=== PATIENT | male | born 1965 | race Caucasian/White ===

== ENCOUNTER → 2021-01-27 | Outpatient (CLI) | payer BC ==
[~2021-01-27] VITALS: Ht 187 cm; Wt 101.0 kg
[~2021-01-27] MED LIST: ACETAMINOPHEN 500 MG TAB (TYLENOL) PO PRN; BAMLANIVIMAB 700 MG/ETESEVIMAB 1,400 MG IN NS IV ONE; EPINEPHrine INJECTION 1 MG/ML AMP IM PRN; ONDANSETRON 4 MG/2 ML (SDV) Z0FRAN IV PRN; diphenhydrAMINE 50 MG/ML INJ (BENADRYL) IV PRN
[2021-01-27 10:13] VITALS: BP 133/85
[2021-01-27 11:51] VITALS: BP 127/80
== END ==
LOC: INFUSION 09:48
PROVIDERS: ATTEND Family Medicine
DX: U07.1 COVID-19 (principal)